=== PATIENT | female | born 1970 | race Caucasian/White ===

== ENCOUNTER 2021-11-30 01:06 | Emergency (ER) | payer MEDICAID, OTHER ==
[~2021-11-30] VITALS: Ht 157.5 cm; Wt 86.0 kg
[~2021-11-30 01:06] MED LIST: LORA10TA7 PO; NASOI BOTHNSTRLS
[2021-11-30] MEDS ORDERED: ASPIRIN 81MG TABLET PO ONE (01:30)
[2021-11-30 02:17] LABS: BASOPHILS % 0.4 % (0.0-2.0); EOSINOPHILS % 1.9 % (0.0-5.0); HEMATOCRIT. 36.6 % (36.0-48.0); MEAN CORPUSCULAR HEMOGLOBIN 27.7 pg (28.0-32.0); MEAN CORPUSCULAR VOLUME 84.1 fL (81.0-99.0); MEAN PLATELET VOLUME 9.1 fl (7.4-10.4); MONOCYTES % 9.1 % (2.0-8.0); NEUTROPHILS % 62.6 % (40.0-76.0); PLATELET 297 x1000/uL (130-400); RED BLOOD CELL COUNT 4.35 mill/uL (4.2-5.4); RED CELL DISTRIBUTION WIDTH 14.4 % (11.6-14.6)
[2021-11-30 02:23] LABS: CHLORIDE 108 mEq/L (98-107)
[2021-11-30 03:00] VITALS: BP 121/84
== END 2021-11-30 03:34 | disposition left against medical advice (07) ==
LOC: ER 01:06
DX: R07.89 Other chest pain (principal); E05.90 Thyrotoxicosis, unspecified without thyrotoxic crisis or storm; Z98.51 Tubal ligation status
CPT/HCPCS: 36415; 71045; 80053; 83880; 84484; 85025; 93005; 99285